=== PATIENT | female | born 1995 | race Two or more races ===

== ENCOUNTER 2025-04-16 01:37 | Inpatient (IN) | payer BC, SELFPAY ==
[2025-04-16] VITALS (58 sets, daily range): BP systolic 102–125; BP diastolic 43–78; PULSE 57–98; RESP 16–18; TEMP 36.5–36.8; O2SAT 97–100; BMI 29.8
--- NOTE | 2025-04-16 03:16 | LDADM ---
This patient, Stef Jackson, was admitted to Labor/Delivery/Recovery 105 on 04/16/25 at 01:37. Plans for labor, pain management and were discussed with patient. Patient/family oriented to hospital policies and general routines including ID bracelet, bed and alarms, visiting hours, pain management, procedures, bathroom and other care routines, personal items, smoking policy, room service/diet and guest tray routines, security routines, and visiting hours. Patient/Family are encouraged to report perceived risks to care and to ask questions if they do not understand what they are told or what they should do. See OBIX for further documentation.
[2025-04-16] MEDS: AMPICILLIN SODIUM 2 GM in SODIUM CHLORIDE 0.9% IV 100 ML 200 ML IVPB (03:38)
[2025-04-16] MEDS: LACTATED RINGERS 1,000 ML 125 ML IV CONT (03:38)
[2025-04-16 03:50] LABS: Hematocrit 37.4 % (37.0-47.0); Hemoglobin 12.8 g/dL (12.0-15.0); Immature Granulocyte Percent A 0.7 % (0-0.5); Lymphocytes Absolute Auto 2.25 K/mm3 (0.9-3.2); Mean Corpuscular HGB Conc 34.2 g/dl (32-36); Mean Corpuscular Hemoglobin 31.6 pg (26-34); Mean Corpuscular Volume 92.3 fl (80-100); Nucleated Red Blood Cells Absolute Auto 0.000 K/mm3 (0.0-0.012); Nucleated Red Blood Cells Perc 0.0 % (0.0-0.2); Platelet Count Result 144 k/mm3 (150-375); Red Blood Count 4.05 M/mm3 (4.2-5.4); White Blood Count 10.8 K/mm3 (4.5-10.0)
[2025-04-16 04:31] LABS: Syphilis IgG/IgM Antibody Non-Reactive (Nonreactive)
[2025-04-16] MEDS: OXYTOCIN 30 UNITS/NS 500 ML 30 UNITS/500 ML BAG 999 UNITS IV CONT (04:45)
[2025-04-16] MEDS: LIDOCAINE 1% LOCAL INJ 20 ML VIAL (04:47)
--- NOTE | 2025-04-16 04:56 | WPDOBADMIT ---
Obstetrics - Admit Note Admission Note: record reviewed. No pertinent additions to the history and/or any subsequent changes in the physical findings that are not consistent with the expected course of the were found. Additions to the history and/or subsequent changes in the physical findings follow. None.
--- NOTE | 2025-04-16 04:56 | PM.OBPRVD ---
OB - Vaginal Delivery Note Procedure Delivery date: 04/16/25 Events: Positive Group B Strep (GBS) Induction method: None Delivery monitor: External FHT and External Uterine Route of delivery: Episiotomy description: None Laceration Description: Vaginal Delivery repair: vicryl (3-0) Specimen: No Quantitative Blood Loss (ml): 100 Anesthesia type: Local Disposition: Floor Complications: No immediate complications [place] Baby Date of : 04/16/25 Gestational Age by Date: 38 Infant gender: Male presentation: vertex position: Left Occiput Anterior Placenta delivery description: Spontaneous Cord Vessel Description: 3 Vessels and Delayed Cord Clamping score one minute: 8 score five minutes: 9
--- NOTE | 2025-04-16 04:57 | PM.OBDSVD ---
DS: Admitting Diagnosis Discharge Date 04/18/25 Admitting Diagnosis IUP 38 6/7 wks labor DS: Discharge Diagnosis Discharge Diagnosis (1) (normal spontaneous vaginal delivery): Code(s): O80 - Encounter for full-term uncomplicated delivery Status: Acute OB - DS: Summary OB Procedures : Ultrasound OB Procedures Intrapartum: Spontaneous Vag Delivery OB Procedures: : None Peripartum Data Infant Delivery Method: Natural Vaginal Laceration Description: Vaginal Episiotomy description: None complications: none Status at Discharge Functional status at discharge: independent ambulation Overall status at discharge: patient is progressing back to baseline Time Spent with Patient Time attestation: Total time spent providing and/or coordinating discharge services: DS: Data Data Completed and Pending Labs on day of discharge: Labs from last 24 hours 04/16/25 03:43 WBC 10.8 H RBC 4.05 L Hgb 12.8 Hct 37.4 MCV 92.3 MCH 31.6 MCHC 34.2 RDW 13.2 Plt Count 144 L MPV 10.6 H Immature Gran % (Auto) 0.7 H Neut % (Auto) 70.6 Lymph % (Auto) 20.8 [place] % (Auto) 7.2 Eos % (Auto) 0.4 Baso % (Auto) 0.3 Lymph # (Auto) 2.25 [place] # (Auto) 0.8 H Eos # (Auto) 0.0 Baso # (Auto) 0.0 Abs Immat Gran (auto) 0.08 H Absolute Neuts (auto) 7.7 H Absolute Nucleated RBC 0.000 Nucleated RBC % 0.0 Syphilis IgG/IgM Ab Non-reactive Blood Type O Positive Antibody Screen Pending Discharge Plan Discharge Attending physician on discharge: Montana Curry Discharging Clinician: Montana Curry Anticipated Discharge Date/Time: 04/17/25 09:58 Patient Disposition: Home Activity: may shower and pelvic rest Diet: heart healthy Discharge Instructions: Education: Mom and Baby Guide Given to: Follow-Up: Call your delivering provider's office for an appointment to be seen in: Call Dr. Kartik Cruz's office for follow up appointment Mom and baby should come to the [facility] for the follow-up appointment. Appointment Date/Time: April 18, 2025 at 8:00 am What to expect at your follow-up visit: Blood Pressure Check Physical Assessment Call [phone] if you are unable to keep your appointment time. BREAST CARE: * Wear a snug supportive bra. * For engorgement discomfort: Breast Feeding: * Apply warm moist washcloths * Express milk as needed to relieve engorgement * Wear loose clothing Bottle Feeding: * May apply ice packs * For sore nipples: * Identify correct latch-on * Apply warm moist washcloths before and after nursing * Air dry nipples after nursing * May apply Lansinoh cream to nipples EPISIOTOMY/PERINEAL CARE: * Until bleeding stops, use your andrew bottle after urinating * Change your pad frequently throughout the day * You may take sitz baths several times a day (fill your bathtub with warm water and soak for 20 minutes.) Do NOT bathe in the water * No tub baths until seen by your physician - You may shower ACTIVITY: * Rest as much as possible. * Do not exercise or lift anything heavier than your baby (such as laundry or other children.) * Avoid stairs or driving as much as possible. * Do not put anything into the vagina. No douching, tampons, or sexual activity until seen by physician. NOTIFY PHYSICIAN IF YOU HAVE ANY QUESTIONS OR IF ANY OF THE FOLLOWING SYMPTOMS OCCUR: * If your episiotomy or incision becomes red, swollen, or more painful than what you have experienced in the hospital. * If your vaginal bleeding becomes foul smelling. * If your vaginal bleeding becomes more heavy than a period or if your bleeding changes from pink to bright red. However, you may pass an occasional walnut-sized clot once or twice for the first week . * If you experience a sharp, shooting pain in you calves. * If you discover a hard, reddened area on your breast or if you experience flu-like symptoms. DIET: * Eat regular, well-balanced meals. * Drink plenty of fluids daily. If , drink to thirst. Patient Instructions: Antibiotic Form Patient Language: Estonian Stand Alone Forms: General Discharge Information Follow-up/Referrals: Montana Curry MD [Physician, JEWELRY MOLD MAKER] - Call for Appointment Date of admission: 04/16/25 01:37 Primary Care Provider: PHYSICIAN,GENETIC PHYSICIAN Admitting Provider: Dalla Bonanza,Montana J. Attending physician on admission: Montana Curry Condition: Stable
[2025-04-16] MEDS: OXYTOCIN 30 UNITS/NS 500 ML 30 UNITS/500 ML BAG 125 UNITS IV CONT (05:16)
[2025-04-16] MEDS: IBUPROFEN 600 MG TABLET PO (06:05)
--- NOTE | 2025-04-16 09:27 | PC.NURSE ---
Patient transferred to post room #283 via wheelchair. Support person present. Oriented to unit, room, information board, rooming in, admission packet and security measures. Patient verbalizes understanding.
[2025-04-17] MEDS: IBUPROFEN 600 MG TABLET PO ×2 (01:00→10:17)
[2025-04-17 04:25] VITALS: BP 118/70; PULSE 70; RESP 16; TEMP 36.8; O2SAT 99
[2025-04-17 05:06] LABS: Hematocrit 35.0 % (37.0-47.0); Hemoglobin 11.7 g/dL (12.0-15.0)
--- NOTE | 2025-04-17 05:56 | P.PNOB_ITS ---
OB - PN: Subj Subjective Date/time seen: 04/17/25 05:56 Patient comments: no complaints, pain well controlled and tolerating diet [place] baby status: doing well and other (desires home) OB - PN: Obj Data Labs 04/17/25 04:33 Labs: Laboratory Results - last 24 hr 04/17/25 04:33 Hgb 11.7 L Hct 35.0 L OB - PN A/P Assessment and Plan (1) (normal spontaneous vaginal delivery): Code(s): O80 - Encounter for full-term uncomplicated delivery Status: Acute Plan ghome Time Spent With Patient Time: Total time spent is greater than 50% in coordination of care (as documented) at patient's floor/unit and/or counseling patient: Exam 2 Const: General: cooperative, healthy appearing and comfortable Nutritional Appearance: average body habitus Orientation/consciousness: oriented to person, oriented to place and oriented to time Resp: Effort & Inspection: normal respiratory effort Cardio: Rate: regular rate Rhythm: regular rhythm Heart sounds: S1 normal heart sound present and S2 normal heart sound present GI: Inspection: normal to inspection
--- NOTE | 2025-04-17 05:57 | P.DS_ITS ---
DS: Admitting Diagnosis Discharge Date 04/17/2025 Admitting Diagnosis trm DS: Discharge Diagnosis Discharge Diagnosis (1) (normal spontaneous vaginal delivery): Code(s): O80 - Encounter for full-term uncomplicated delivery Status: Acute DS: Summary Hospital Course Reason for hospitalization: Patient was admitted in active labor underwent spontaneous vaginal delivery on 04/16/2025 Hospital Course: Patient's hospital course unremarkable. She remained afebrile. She was up, voiding without difficulty, eating regular diet, ambulating, generally without complaints. Time Spent with Patient Time attestation: Total time spent providing and/or coordinating discharge services: Exam Const: General: cooperative, healthy appearing and comfortable Nutritional Appearance: average body habitus Orientation/consciousness: oriented to person, oriented to place and oriented to time Resp: Effort & Inspection: normal respiratory effort Cardio: Rate: regular rate Rhythm: regular rhythm Heart sounds: S1 normal heart sound present and S2 normal heart sound present GI: Inspection: normal to inspection DS: Data Data Completed and Pending Labs on day of discharge: Labs from last 24 hours 04/17/25 04:33 Hgb 11.7 L Hct 35.0 L Discharge Plan Discharge Attending physician on discharge: Montana Curry Discharging Clinician: Sera White Anticipated Discharge Date/Time: 04/17/25 09:58 Patient Disposition: Home Activity: may shower and pelvic rest Diet: heart healthy Patient Instructions: Antibiotic Form Patient Language: Sinhala Stand Alone Forms: General Discharge Information Follow-up/Referrals: Montana Curry MD [Physician, HOUSE WIRER HELPER] - Call for Appointment Date of admission: 04/16/25 01:37 Primary Care Provider: PHYSICIAN,DRAW FRAME RUNNER Admitting Provider: Montana Curry Attending physician on admission: Montana Curry Condition: Stable
[2025-04-17 07:35] VITALS: BP 104/64; PULSE 77; RESP 16; TEMP 36.6; O2SAT 96
[2025-04-17] MEDS: DOCUSATE SODIUM 100 MG CAPSULE PO (09:17)
[2025-04-18 08:18] VITALS: BP 99/46; PULSE 68; RESP 18; TEMP 36.5; O2SAT 99
== END 2025-04-17 11:00 | disposition home or self-care (01) | DRG 807 ==
LOC: ANHLDR 04:59 → ANHOB2 07:34
PROVIDERS: Admitting Provider Obstetrics & Gynecology Gynecology; Visit Provider Obstetrics & Gynecology
DX: O99.824 Streptococcus B carrier state complicating childbirth (principal); Z37.0 Single live birth; Z3A.38 38 weeks gestation of pregnancy; O62.3 Precipitate labor; O71.4 Obstetric high vaginal laceration alone
CPT/HCPCS: 36415; 85014; 85018; 85025; 86593; 86850; 86900; 86901; A9270; J0290; J2003; J2590; J2795; J7120